=== PATIENT | male | born 1990 | race Caucasian/White ===

== ENCOUNTER 2016-10-25 21:41 | Emergency (ER) | payer MEDICAID, SELFPAY ==
[~2016-10-25] VITALS: Ht 190.5 cm; Wt 138.8 kg
[2016-10-26 00:30] VITALS: BP 135/84
== END 2016-10-26 00:30 | disposition home or self-care (01) ==
LOC: M ED 22:47
DX: M25.561 Pain in right knee (principal); G89.29 Other chronic pain

== ENCOUNTER 2016-12-11 20:33 | Emergency (ER) | payer OTHER, SELFPAY ==
[~2016-12-11] VITALS: Ht 190.5 cm; Wt 138.3 kg
[2016-12-11 20:33] VITALS: BP 141/88
[2016-12-11] MEDS ORDERED: CIPROFLOXACIN 0.3% OPHTH SOLN 2.5ML OD ONE (21:15)
[2016-12-11] MEDS ORDERED: NAPROXEN 250 MG TAB PO ONE (21:15)
[2016-12-11] MEDS ORDERED: NAPR500T PO (21:16)
== END 2016-12-11 21:34 | disposition home or self-care (01) ==
LOC: M ED 21:19
DX: S00.11XA Contusion of right eyelid and periocular area, initial encounter (principal); S05.31XA Ocular laceration without prolapse or loss of intraocular tissue, right eye, initial encounter; W22.8XXA Striking against or struck by other objects, initial encounter; Y92.099 Unspecified place in other non-institutional residence as the place of occurrence of the external cause; Y93.89 Activity, other specified; Y99.9 Unspecified external cause status

== ENCOUNTER 2018-01-03 11:06 | Emergency (ER) | payer OTHER ==
[2018-01-03] MEDS: ADACEL/BOOSTRIX VACCINE (DIPHTH/PERTUSS/ACELL/TETANUS)0.5ML SYR (90715) IM (13:00)
[2018-01-03] MEDS: IBUPROFEN 600 MG TAB PO (13:17)
== END 2018-01-03 13:34 | disposition home or self-care (01) ==
LOC: M ED 11:06
DX: S60.051A Contusion of right little finger without damage to nail, initial encounter (principal); S60.416A Abrasion of right little finger, initial encounter; W23.0XXA Caught, crushed, jammed, or pinched between moving objects, initial encounter; Y92.9 Unspecified place or not applicable; Y93.9 Activity, unspecified; Y99.9 Unspecified external cause status; Z87.891 Personal history of nicotine dependence; Z88.2 Allergy status to sulfonamides
CPT/HCPCS: 90715

== ENCOUNTER 2018-01-22 11:40 | Emergency (ER) | payer OTHER ==
[2018-01-22] MEDS: PERCOCET 5MG/325MG TAB PO (12:20)
== END 2018-01-22 13:11 | disposition home or self-care (01) ==
LOC: M ED 11:40
DX: S63.614A Unspecified sprain of right ring finger, initial encounter (principal); W23.0XXA Caught, crushed, jammed, or pinched between moving objects, initial encounter; Y92.59 Other trade areas as the place of occurrence of the external cause; Y99.0 Civilian activity done for income or pay; Z88.1 Allergy status to other antibiotic agents; Z88.2 Allergy status to sulfonamides; F17.210 Nicotine dependence, cigarettes, uncomplicated
CPT/HCPCS: 73140

== ENCOUNTER 2018-04-30 15:39 | Emergency (ER) | payer OTHER ==
[2018-04-30] MEDS: LIDOCAINE 1% MDV 20ML VIAL IM (16:30)
== END 2018-04-30 17:14 | disposition home or self-care (01) ==
LOC: M ED 15:39
DX: S61.412A Laceration without foreign body of left hand, initial encounter (principal); W26.8XXA Contact with other sharp object(s), not elsewhere classified, initial encounter; Y92.59 Other trade areas as the place of occurrence of the external cause; Y99.0 Civilian activity done for income or pay; Z88.1 Allergy status to other antibiotic agents; Z88.2 Allergy status to sulfonamides
CPT/HCPCS: 12002

== ENCOUNTER 2018-05-07 11:10 | Emergency (ER) | payer OTHER | END 2018-05-07 12:46 | disposition home or self-care (01) | LOC: M ED 11:10 | DX: Z48.02 Encounter for removal of sutures (principal); Z72.0 Tobacco use; Z88.2 Allergy status to sulfonamides | CPT/HCPCS: 99282 ==

== ENCOUNTER 2018-08-09 10:20 | Emergency (ER) | payer OTHER ==
[~2018-08-09] VITALS: Ht 190.5 cm; Wt 141.8 kg
[~2018-08-09 10:20] MED LIST: IBUP-1022 PO; NAPR-49 PO; TYLE500T78 PO
[2018-08-09] MEDS ORDERED: TETRACAINE 0.5% OPHTH SOLN 4ML OD ONE (11:30)
[2018-08-09] MEDS ORDERED: FLUORESCEIN OPHTH 1 MG STRIP OD ONE (11:30)
[2018-08-09] MEDS ORDERED: TRIA25CR TOP (11:55)
[2018-08-09 11:58] VITALS: BP 161/98
== END 2018-08-09 12:01 | disposition home or self-care (01) ==
LOC: M ED 10:20
DX: L24.9 Irritant contact dermatitis, unspecified cause (principal)

== ENCOUNTER → 2018-12-30 | Outpatient (REF) | payer OTHER ==
[~2018-12-30] MED LIST changes: -NAPR-49 PO; +NAPR-837 PO; +TRIA25CR TOP
[2018-12-30 12:50] LABS: APPEARANCE, URINE CLEAR (CLEAR); BACTERIA, URINE AUTO NEGATIVE (NEGATIVE); BILIRUBIN, URINE AUTO NEGATIVE (NEGATIVE); BLOOD, URINE BLOOD NEGATIVE (NEGATIVE); COLOR, URINE YELLOW (YELLOW); GLUCOSE, URINE (UA) AUTO NEGATIVE (NEGATIVE); KETONE, URINE AUTO NEGATIVE (NEGATIVE); LEUKOCYTE ESTERASE, URINE AUTO NEGATIVE (NEGATIVE); NITRITE, URINE AUTO NEGATIVE (NEGATIVE); PROTEIN, URINE AUTO NEGATIVE (NEGATIVE); RBC, URINE AUTO 1 /HPF (0-3); SPECIFIC GRAVITY URINE AUTO 1.026 (1.002-1.035); SQUAMOUS EPITHELIAL CELL UR AU 0 /HPF (0-6); UROBILINOGEN, URINE AUTO 0.2 mg/dL (0.0-2.0); WBC, URINE AUTO 1 /HPF (0-3)
[2018-12-30 13:07] LABS: BASO % 0.3 % (0.0-1.0); EOS # 0.2 10^3/uL (0.0-0.50); EOS % 2.3 % (0.0-3.0); LYMPH # 2.2 10^3/uL (1.5-6.5); LYMPH % 24.3 % (24.0-44.0); MEAN CORPUSCULAR HEMOGLOBIN 28.9 pg (27.0-33.0); MEAN CORPUSCULAR HGB CONC 33.3 g/dl (32.0-36.5); MEAN CORPUSCULAR VOLUME 86.6 fl (80.0-96.0); MONO # 0.6 10^3/uL (0.0-0.8); MONO % 6.7 % (0.0-5.0); NEUTROPHILS # 6.1 10^3/uL (1.8-7.7); PLATELET COUNT, AUTOMATED 228 10^3/uL (150-450); RED BLOOD COUNT 5.54 10^6/uL (4.30-6.10); WHITE BLOOD COUNT 9.2 10^3/uL (4.0-10.0)
[2018-12-30 13:21] LABS: ALBUMIN 3.8 GM/DL (3.2-5.2); ALT/SGPT 31 U/L (12-78); BILIRUBIN,TOTAL 0.6 MG/DL (0.2-1.0); BLOOD UREA NITROGEN 20 MG/DL (7-18); CALCIUM LEVEL 8.8 MG/DL (8.5-10.1); CARBON DIOXIDE LEVEL 31 MEQ/L (21-32); CHLORIDE LEVEL 107 MEQ/L (98-107); CHOLESTEROL LEVEL 179 MG/DL (<200); CHOLESTEROL RISK RATIO 5.114 (<5); CREATININE FOR GFR 0.85 MG/DL (0.70-1.30); FREE T4 0.86 NG/DL (0.76-1.46); GLOMERULAR FILTRATION RATE > 60.0 (>60); GLUCOSE, FASTING 77 MG/DL (70-100); HDL CHOLESTEROL 35 MG/DL (>40); LDL CHOLESTEROL 113 MG/DL (<100); NON-HDL-C 144 MG/DL; SODIUM LEVEL 142 MEQ/L (136-145); TOTAL PROTEIN 7.6 GM/DL (6.4-8.2); TRIGLYCERIDES LEVEL 156 MG/DL (<150)
[2018-12-30 13:22] LABS: TOTAL 25(OH) VITAMIN D 15.9 NG/ML (30.0-100.0)
[2018-12-30 13:55] LABS: HEMOGLOBIN A1c 5.5 %
[2019-01-04 00:08] LABS: Lyme Disease IgG/IgM Antibodie <0.91 ISR (0.00-0.90); Lyme Disease IgM Ab Quantitati <0.80 index (0.00-0.79)
== END ==
LOC: M LAB REF 12:13
PROVIDERS: ATTEND Family Medicine
DX: Z13.228 Encounter for screening for other metabolic disorders (principal)

== ENCOUNTER → 2019-06-27 | Outpatient (REF) | payer OTHER ==
[2019-06-27 12:35] LABS: ALBUMIN 4.1 GM/DL (3.2-5.2); ALT/SGPT 34 U/L (12-78); BILIRUBIN,TOTAL 0.4 MG/DL (0.2-1.0); BLOOD UREA NITROGEN 19 MG/DL (7-18); CALCIUM LEVEL 9.5 MG/DL (8.5-10.1); CARBON DIOXIDE LEVEL 28 MEQ/L (21-32); CHLORIDE LEVEL 106 MEQ/L (98-107); CHOLESTEROL LEVEL 169 MG/DL (<200); CHOLESTEROL RISK RATIO 4.121 (<5); CREATININE FOR GFR 0.88 MG/DL (0.70-1.30); GLOMERULAR FILTRATION RATE > 60.0 (>60); GLUCOSE, FASTING 79 MG/DL (70-100); HDL CHOLESTEROL 41 MG/DL (>40); LDL CHOLESTEROL 100 MG/DL (<100); NON-HDL-C 128 MG/DL; SODIUM LEVEL 141 MEQ/L (136-145); TOTAL PROTEIN 7.5 GM/DL (6.4-8.2); TRIGLYCERIDES LEVEL 141 MG/DL (<150)
[2019-06-27 13:10] LABS: HEMOGLOBIN A1c 5.3 %
== END ==
LOC: M LAB REF 11:50
PROVIDERS: ATTEND Family Medicine
DX: R73.03 Prediabetes (principal); E78.5 Hyperlipidemia, unspecified

== ENCOUNTER 2019-08-20 00:20 | Emergency (ER) | payer OTHER ==
[~2019-08-20] VITALS: Ht 190.5 cm; Wt 142.2 kg
[2019-08-20 01:38] LABS: VENOUS BASE EXCESS -1.9 (-2.0-2.0); VENOUS HCO3 23.9 MEQ/L (23.0-27.0); VENOUS O2 SATURATION 76.3 % (60.0-80.0); VENOUS PARTIAL PRESSURE CO2 44.5 mmHg (38.0-50.0); VENOUS PARTIAL PRESSURE O2 40.4 mmHg (30.0-50.0); VENOUS PH 7.348 UNITS (7.330-7.430); VENOUS STANDARD HCO3 22.3 MEQ/L; VENOUS TOTAL CO2 25.3 MEQ/L (24.0-28.0)
[2019-08-20 02:36] VITALS: BP 136/86
--- NOTE | 2019-08-20 09:41 | REP ---
CHEST, SINGLE VIEW: There is no evidence of acute infiltrate. No pleural effusion is seen. The heart is normal in size. The mediastinal silhouette is unremarkable. The visualized osseous structures are intact. IMPRESSION: No acute pulmonary disease. Electronically Signed by Marcus Dailey MD 08/20/2019 09:43 A
== END 2019-08-20 03:12 | disposition home or self-care (01) ==
LOC: M ED 00:20
DX: R44.8 Other symptoms and signs involving general sensations and perceptions (principal); Z88.1 Allergy status to other antibiotic agents; Z88.2 Allergy status to sulfonamides
CPT/HCPCS: 36415; 71045; 82803; 99283; G0480

== ENCOUNTER → 2019-10-30 | Outpatient (REF) | payer OTHER, MEDICAID ==
[2019-10-30 12:41] LABS: BASO # 0.1 10^3/uL (0.0-0.2); BASO % 0.8 % (0.0-1.0); EOS # 0.2 10^3/uL (0.0-0.5); EOS % 1.9 % (0.0-3.0); HEMATOCRIT 46.7 % (42.0-52.0); HEMOGLOBIN 15.4 g/dl (13.5-17.5); LYMPH # 2.6 10^3/uL (1.5-5.0); LYMPH % 28.1 % (24.0-44.0); MEAN CORPUSCULAR HEMOGLOBIN 28.2 pg (27.0-33.0); MEAN CORPUSCULAR VOLUME 85.5 fl (80.0-96.0); MONO # 0.7 10^3/uL (0.0-0.8); MONO % 8.1 % (0.0-5.0); NEUTROPHILS # 5.6 10^3/uL (1.5-8.5); NEUTROPHILS % 60.7 % (36.0-66.0); PLATELET COUNT, AUTOMATED 234 10^3/uL (150-450); RED BLOOD COUNT 5.46 10^6/uL (4.30-6.10); WHITE BLOOD COUNT 9.2 10^3/uL (4.0-10.0)
[2019-10-30 12:59] LABS: ALBUMIN 3.8 GM/DL (3.2-5.2); ALT/SGPT 27 U/L (12-78); BILIRUBIN,TOTAL 0.4 MG/DL (0.2-1.0); BLOOD UREA NITROGEN 18 MG/DL (7-18); CALCIUM LEVEL 9.1 MG/DL (8.5-10.1); CARBON DIOXIDE LEVEL 29 MEQ/L (21-32); CHLORIDE LEVEL 106 MEQ/L (98-107); CHOLESTEROL LEVEL 191 MG/DL (<200); CHOLESTEROL RISK RATIO 5.026 (<5); CREATININE FOR GFR 0.75 MG/DL (0.70-1.30); GLOMERULAR FILTRATION RATE > 60.0 (>60); GLUCOSE, FASTING 90 MG/DL (70-100); HDL CHOLESTEROL 38 MG/DL (>40); LDL CHOLESTEROL 126 MG/DL (<100); NON-HDL-C 153 MG/DL; POTASSIUM SERUM 4.2 MEQ/L (3.5-5.1); SODIUM LEVEL 141 MEQ/L (136-145); TOTAL 25(OH) VITAMIN D 14.5 NG/ML (30.0-100.0); TOTAL PROTEIN 7.4 GM/DL (6.4-8.2); TRIGLYCERIDES LEVEL 135 MG/DL (<150)
[2019-10-30 13:44] LABS: HEMOGLOBIN A1c 5.5 %
== END ==
LOC: M LAB REF 12:03
PROVIDERS: ATTEND Family Medicine
DX: R73.03 Prediabetes (principal)

== ENCOUNTER → 2020-12-26 | Outpatient (CLI) | payer BC ==
[~2020-12-26] MED LIST changes: +GASTROGRAFIN SOLUTION 30ML (Q9963) As Ordered ONE; +ISOVUE-370 76% 100ML VIAL As Ordered ONE
--- NOTE | 2020-12-26 09:28 | REP ---
INDICATION: RLQ/RUQ PAIN-POST BARIATRIC SURGERY COMPARISON: None. TECHNIQUE: Real time cabello scale ultrasound examination using curved array transducer. FINDINGS: Liver is normal in contour, size, and echogenicity without focal hepatic lesions identified. Pancreas is incompletely evaluated due to interposed bowel gas. The gallbladder demonstrates moderate layering sludge and gravel/small gallstones. No gallbladder wall thickening or pericholecystic fluid is appreciated. Common bile duct measures 3.6 mm diameter. Right kidney is normal in reniform shape without hydronephrosis and measures 10.7 x 5.5 x 4.7 cm. No ascites in the visualized right upper quadrant. IMPRESSION: Cholelithiasis. <Electronically signed by Rufino Moura > 12/26/20 [id number]
--- NOTE | 2020-12-27 06:16 | REP ---
INDICATION: RLQ/RUQ PAIN-POST BARIATRIC SURGERY. COMPARISON: None TECHNIQUE: Axial contrast-enhanced images from the lung bases to the pubic symphysis using oral and 100 cc Isovue 370 intravenous contrast material. Coronal and sagittal reformations obtained.. This CT examination was performed using the following dose reduction techniques: Automated exposure control, adjustment of mA and/or kv according to the patient's size, and the use of iterative reconstruction technique. FINDINGS: Liver, spleen, pancreas, gallbladder, bilateral adrenal glands and kidneys are normal. Evidence for prior gastric bypass surgery which appears relatively normal. No evidence for bowel obstruction or acute inflammatory process. Normal terminal ileum and appendix identified in the right lower quadrant. Pelvis demonstrates normal bladder and age-appropriate prostate/seminal vesicles. No ascites. No free air. No intraperitoneal or retroperitoneal adenopathy. Abdominal aorta and vasculature appear normal. Musculoskeletal structures are intact and without acute osseous abnormality. IMPRESSION: No acute abdominopelvic pathology appreciated. Prior gastric bypass surgery. <Electronically signed by Rufino Moura > 12/27/20 [id number]
== END ==
LOC: M RAD 08:40
PROVIDERS: ATTEND Physician Assistant
DX: R10.11 Right upper quadrant pain (principal); Z98.84 Bariatric surgery status
CPT/HCPCS: 74177; 76705; Q9963; Q9967

== ENCOUNTER → 2021-07-18 | Outpatient (CLI) | payer OTHER ==
[~2021-07-18] MED LIST changes: -GASTROGRAFIN SOLUTION 30ML (Q9963) As Ordered ONE; -ISOVUE-370 76% 100ML VIAL As Ordered ONE
--- NOTE | 2021-07-18 15:43 | REP ---
INDICATION: PAIN IN LT ANKLE. COMPARISON: None. TECHNIQUE: Multiple sequences are obtained in the axial, coronal and sagittal planes. FINDINGS: The Achilles, anterior tibial, posterior tibial, flexor hallucis longus, flexor digitorum longus and peroneal tendons are all intact without significant tenosynovitis. The anterior and posterior talofibular, calcaneofibular and deltoid ligaments appear intact. Plantar tendon appears intact. There is no plantar fasciitis. Sinus tarsi appears unremarkable. No ganglion cyst is seen. There is normal amount of joint fluid. The cartilaginous surfaces are smooth. No osteochondral defect is seen at the tibiotalar joint. There is no bone marrow edema or occult fracture. IMPRESSION: Negative MRI of the ankle. <Electronically signed by Marcus Dailey > 07/18/21 [id number]
== END ==
LOC: M RAD 12:26
PROVIDERS: ATTEND Orthopaedic Surgery
DX: S82.55XD Nondisplaced fracture of medial malleolus of left tibia, subsequent encounter for closed fracture with routine healing (principal); X58.XXXD Exposure to other specified factors, subsequent encounter; Y92.9 Unspecified place or not applicable; Y99.9 Unspecified external cause status; Y93.89 Activity, other specified

== ENCOUNTER 2022-02-24 15:35 | Emergency (ER) | payer OTHER ==
[~2022-02-24] VITALS: Ht 190.5 cm; Wt 78.6 kg
[2022-02-24] MEDS ORDERED: VITMTA PO (15:49)
[2022-02-24] MEDS ORDERED: ACETAMINOPHEN 500 MG TAB PO ONE (17:30)
[2022-02-24] MEDS ORDERED: BOOSTRIX/ADACEL VACCINE (DIPHTH/PERTUSS/ACELL/TETANUS) 0.5ML SYR IM ONE (17:30)
[2022-02-24] MEDS ORDERED: CEPH500C PO (18:20)
[2022-02-24 18:31] VITALS: BP 114/74
== END 2022-02-24 18:32 | disposition home or self-care (01) ==
LOC: EDBD 15:35 → M ED 15:35
DX: S00.83XA Contusion of other part of head, initial encounter (principal); S00.81XA Abrasion of other part of head, initial encounter; Y04.8XXA Assault by other bodily force, initial encounter; Z98.84 Bariatric surgery status; Y92.9 Unspecified place or not applicable; Y93.9 Activity, unspecified; Y99.0 Civilian activity done for income or pay; Z88.2 Allergy status to sulfonamides

== ENCOUNTER → 2022-07-08 | Outpatient (REF) | payer OTHER ==
[~2022-07-08] MED LIST changes: +CEPH500C PO; +VITMTA PO
[2022-07-08 17:45] LABS: BASO % 0.4 % (0.0-1.0); EOS # 0.2 10^3/uL (0.0-0.5); EOS % 4.7 % (0.0-3.0); HEMOGLOBIN 14.3 g/dl (13.5-17.5); LYMPH # 1.1 10^3/uL (1.5-5.0); LYMPH % 23.1 % (24.0-44.0); MEAN CORPUSCULAR HEMOGLOBIN 29.1 pg (27.0-33.0); MEAN CORPUSCULAR HGB CONC 33.3 g/dl (32.0-36.5); MEAN CORPUSCULAR VOLUME 87.6 fl (80.0-96.0); MONO # 0.6 10^3/uL (0.0-0.8); NEUTROPHILS # 2.8 10^3/uL (1.5-8.5); NEUTROPHILS % 58.6 % (36.0-66.0); PLATELET COUNT, AUTOMATED 179 10^3/uL (150-450); RED BLOOD COUNT 4.91 10^6/uL (4.30-6.10); WHITE BLOOD COUNT 4.7 10^3/uL (4.0-10.0)
[2022-07-08 19:13] LABS: IRON (FE) 74 UG/DL (65-175)
[2022-07-08 19:19] LABS: THYROID STIMULATING HORMONE 0.854 uIU/ML (0.55-4.78)
[2022-07-08 19:20] LABS: TOTAL 25(OH) VITAMIN D 25.2 NG/ML (20.0-100.0)
[2022-07-08 19:21] LABS: VITAMIN B12 LEVEL 600 PG/ML (211-911)
[2022-07-08 19:23] LABS: FREE T4 0.95 NG/DL (0.89-1.76)
[2022-07-08 19:45] LABS: HIV 1&2 SCREEN CENTAUR NEGATIVE (NEGATIVE)
[2022-07-08 19:54] LABS: ALKALINE PHOSPHATASE 119 U/L (46-116); ALT/SGPT 22 U/L (7.0-40); AST/SGOT 22 U/L (<34); BILIRUBIN,TOTAL 0.5 MG/DL (0.3-1.2); BLOOD UREA NITROGEN 13 MG/DL (9-23); CARBON DIOXIDE LEVEL 31 MMOL/L (20-31); CHLORIDE LEVEL 102 MMOL/L (98-107); CHOLESTEROL LEVEL 92 MG/DL (<200); CHOLESTEROL RISK RATIO 2.39 (<5); CREATININE FOR GFR 0.74 MG/DL (0.70-1.30); GLOMERULAR FILTRATION RATE > 60.0 (>60); GLUCOSE, FASTING 75 MG/DL (60-100); HDL CHOLESTEROL 38.4 MG/DL (>40); LDL CHOLESTEROL 42.4 MG/DL (<100); NON-HDL-C 54 MG/DL; POTASSIUM SERUM 4.2 MMOL/L (3.5-5.1); SODIUM LEVEL 141 MMOL/L (136-145); TOTAL PROTEIN 6.6 G/DL (5.7-8.2); TRIGLYCERIDES LEVEL 56 MG/DL (<150)
[2022-07-08 22:26] LABS: HEMOGLOBIN A1c 4.7 % (4.0-6.0)
== END ==
LOC: M LAB REF 17:12
PROVIDERS: ATTEND Family Medicine Addiction Medicine
DX: E88.81 Metabolic syndrome and other insulin resistance (principal)

== ENCOUNTER 2023-02-07 00:46 | Emergency (ER) | payer MEDICAID, OTHER ==
[~2023-02-07] VITALS: Ht 188 cm; Wt 75.8 kg
[2023-02-07 00:50] VITALS: BP 116/76; TEMP 96.7; O2SAT 97
[2023-02-07] MEDS ORDERED: CYCLOBENZAPRINE 10MG TABLET PO ONE (05:10)
[2023-02-07] MEDS ORDERED: ACETAMINOPHEN TAB 650MG DOSE (2X325MG) PO ONE (05:10)
[2023-02-07] MEDS ORDERED: CYCL-707 PO (06:09)
== END 2023-02-07 06:24 | disposition home or self-care (01) ==
LOC: M ED 00:46
DX: S16.1XXA Strain of muscle, fascia and tendon at neck level, initial encounter (principal); Z88.2 Allergy status to sulfonamides; Z79.810 Long term (current) use of selective estrogen receptor modulators (SERMs); Z79.899 Other long term (current) drug therapy

== ENCOUNTER 2023-08-02 15:42 | Emergency (ER) | payer OTHER ==
[~2023-08-02] VITALS: Ht 190.5 cm; Wt 85.1 kg
[~2023-08-02 15:42] MED LIST changes: +CYCL-707 PO
[2023-08-02 15:43] VITALS: BP 128/78; TEMP 98.9; O2SAT 98
[2023-08-02] MEDS ORDERED: SERT50TA29 (15:49)
[2023-08-02] MEDS ORDERED: methocarbamoL 500 MG TAB PO ONE (16:30)
[2023-08-02] MEDS ORDERED: predniSONE 20 MG TAB PO ONE (16:30)
[2023-08-02] MEDS ORDERED: PRED20TA PO (16:42)
[2023-08-02] MEDS ORDERED: METH-1164 PO (16:42)
== END 2023-08-02 16:51 | disposition home or self-care (01) ==
LOC: M ED 15:42
DX: S43.401A Unspecified sprain of right shoulder joint, initial encounter (principal); X50.0XXA Overexertion from strenuous movement or load, initial encounter; Z98.84 Bariatric surgery status; Z88.2 Allergy status to sulfonamides; Y92.009 Unspecified place in unspecified non-institutional (private) residence as the place of occurrence of the external cause; Y93.9 Activity, unspecified; Y99.9 Unspecified external cause status; Z79.52 Long term (current) use of systemic steroids; Z79.899 Other long term (current) drug therapy
CPT/HCPCS: 73030; 99282; J7512

== ENCOUNTER → 2023-09-09 | Outpatient (CLI) | payer OTHER ==
[~2023-09-09] MED LIST changes: +METH-1164 PO; +PRED20TA PO; +SERT50TA29
== END ==
LOC: M SOG 15:06
PROVIDERS: ATTEND Physician Assistant
DX: M54.12 Radiculopathy, cervical region (principal)

== ENCOUNTER → 2023-11-27 | Outpatient (CLI) | payer OTHER | LOC: M RAD 08:40 | PROVIDERS: ATTEND Physician Assistant | DX: M50.00 Cervical disc disorder with myelopathy, unspecified cervical region (principal) ==

== ENCOUNTER 2024-03-04 11:21 | Emergency (ER) | payer OTHER ==
[~2024-03-04] VITALS: Ht 190.5 cm; Wt 76.6 kg
[2024-03-04 13:04] LABS: BASO # 0.1 10^3/uL (0.0-0.2); BASO % 0.8 % (0.0-1.0); EOS # 0.6 10^3/uL (0.0-0.5); EOS % 7.9 % (0.0-3.0); HEMATOCRIT 44.3 % (42.0-52.0); HEMOGLOBIN 14.8 g/dl (13.5-17.5); LYMPH # 1.5 10^3/uL (1.5-5.0); LYMPH % 19.7 % (24.0-44.0); MEAN CORPUSCULAR HEMOGLOBIN 29.4 pg (27.0-33.0); MEAN CORPUSCULAR HGB CONC 33.4 g/dl (32.0-36.5); MEAN CORPUSCULAR VOLUME 88.1 fl (80.0-96.0); MONO # 0.5 10^3/uL (0.0-0.8); NEUTROPHILS # 4.9 10^3/uL (1.5-8.5); NEUTROPHILS % 64.3 % (36.0-66.0); PLATELET COUNT, AUTOMATED 164 10^3/uL (150-450); RED BLOOD COUNT 5.03 10^6/uL (4.30-6.10); WHITE BLOOD COUNT 7.6 10^3/uL (4.0-10.0)
[2024-03-04 13:17] LABS: INR 1.12; PARTIAL THROMBOPLASTIN TIME 28.8 SECONDS (24.8-34.2); PROTHROMBIN TIME 14.1 SECONDS (12.5-14.5)
[2024-03-04 13:21] LABS: LIPASE 40 U/L (12-53)
[2024-03-04 13:22] LABS: AMYLASE 69 U/L (30-118)
[2024-03-04 13:23] LABS: ALBUMIN 4.1 G/DL (3.2-5.2); ALKALINE PHOSPHATASE 105 U/L (46-116); ALT/SGPT 22 U/L (7.0-40); AST/SGOT 16 U/L (<34); BILIRUBIN,DIRECT 0.3 MG/DL (<0.4); BILIRUBIN,TOTAL 0.7 MG/DL (0.3-1.2); BLOOD UREA NITROGEN 11 MG/DL (9-23); CALCIUM LEVEL 8.9 MG/DL (8.5-10.1); CARBON DIOXIDE LEVEL 30 MMOL/L (20-31); CHLORIDE LEVEL 105 MMOL/L (98-107); CREATININE FOR GFR 0.81 MG/DL (0.70-1.30); GLOMERULAR FILTRATION RATE > 60.0 (>60); GLUCOSE, FASTING 80 MG/DL (60-100); POTASSIUM SERUM 4.6 MMOL/L (3.5-5.1); SODIUM LEVEL 139 MMOL/L (136-145); TOTAL PROTEIN 6.6 G/DL (5.7-8.2)
[2024-03-04] MEDS: KETOROLAC 30 MG/ML 1ML VIAL IV ONE (16:13)
[2024-03-04 16:20] VITALS: BP 119/75; TEMP 98.4; O2SAT 99
== END 2024-03-04 16:24 | disposition home or self-care (01) ==
LOC: M ED 11:21
DX: R10.9 Unspecified abdominal pain (principal); F41.9 Anxiety disorder, unspecified; F32.A Depression, unspecified; F17.290 Nicotine dependence, other tobacco product, uncomplicated; Z88.2 Allergy status to sulfonamides
CPT/HCPCS: 74018; 80048; 80076; 81001; 82150; 83605; 83690; 85025; 85610; 85730; 96374; 99283; J1885

== ENCOUNTER → 2024-06-21 | Outpatient (REF) | payer OTHER ==
[2024-06-26 08:07] LABS: URINE COTININE LEVEL <10 ng/mL (.); URINE NICOTINE LEVEL <10 ng/mL (.)
== END ==
LOC: M LAB REF 10:17
PROVIDERS: ATTEND Orthopaedic Surgery
DX: Z01.818 Encounter for other preprocedural examination (principal); Z87.891 Personal history of nicotine dependence; M50.222 Other cervical disc displacement at C5-C6 level